=== PATIENT | male | born 1990 ===

== ENCOUNTER 2022-07-29 11:14 | Outpatient (CLI) | payer OTHER | END 2022-07-29 11:19 | disposition home or self-care (01) | LOC: PPH VACUNA 11:14 | PROVIDERS: ATTEND Emergency Medicine Pediatric Emergency Medicine | DX: Z23 Encounter for immunization (principal) ==

== ENCOUNTER 2022-07-30 00:21 | Outpatient (CLI) | payer OTHER | END 2022-07-30 13:24 | disposition home or self-care (01) | LOC: LAB 00:21 | PROVIDERS: ATTEND Obstetrics & Gynecology | DX: Z20.828 Contact with and (suspected) exposure to other viral communicable diseases (principal); Z20.818 Contact with and (suspected) exposure to other bacterial communicable diseases ==

== ENCOUNTER 2023-05-20 12:25 | Outpatient (CLI) | payer OTHER | END 2023-05-20 12:30 | disposition home or self-care (01) | LOC: PPH VACUNA 12:25 | PROVIDERS: ATTEND Emergency Medicine Pediatric Emergency Medicine | DX: Z23 Encounter for immunization (principal) ==